=== PATIENT | male | born 1985 | race Caucasian/White ===

== ENCOUNTER 2018-04-04 12:02 | Emergency (ER) | payer MEDICAID ==
[~2018-04-04] VITALS: Ht 175.3 cm; Wt 90.7 kg
[~2018-04-04 12:02] MED LIST: QUET25TA46 PO
[2018-04-04] MEDS ORDERED: ASPirin 81 mg TAB PO ONE (12:45)
[2018-04-04 13:03] LABS: Basophils # (auto) 0 uL; Basophils % (auto) 1.1 % (0.0-2.0); Eosinophils # (auto) 0.1 uL; Eosinophils % (auto) 2.4 % (0.0-7.0); Hematocrit 34.8 % (41.0-53.0); Hemoglobin 11.5 g/dL (13.5-17.5); Lymphocytes # (auto) 0.8 uL; Lymphocytes % (auto) 22.5 % (10.0-50.0); Mean Corpuscular Hemoglobin 29.9 pg (28.0-32.0); Mean Corpuscular Hgb Conc. 33.1 g/dL (32.0-36.0); Mean Corpuscular Volume 90.4 fL (80.0-100.0); Monocytes # (auto) 0.4 uL; Monocytes % (auto) 9.6 % (0.0-12.0); Neutrophils # (auto) 2.4 uL; Neutrophils % (auto) 64.4 % (37.0-80.0); Nucleated Red Blood Cells % 0.1 %; Platelet Count (auto) 144 10^3/uL (140-450); Red Blood Cells 3.85 10^6/uL (4.5-5.90); Red Cell Distribution Width 18.4 % (11.8-14.3); White Blood Cell 3.8 10^3/uL (4.4-10.8)
[2018-04-04 13:05] VITALS: BP 117/87
[2018-04-04 13:23] LABS: BUN/Creatinine Ratio 12.6; Potassium 4.2 mmol/L (3.5-5.1)
[2018-04-04 13:27] LABS: Albumin 3.6 g/dL (3.4-5.0); Bilirubin, Total 0.2 mg/dL (0.2-1.0); Total Protein 7.3 g/dL (6.4-8.2)
== END 2018-04-04 14:35 | disposition home or self-care (01) ==
LOC: ER 12:02 → EDBD 12:02 → EDUNIT# 12:02 → ER 14:35
DX: R07.89 Other chest pain (principal); J45.909 Unspecified asthma, uncomplicated; I25.10 Atherosclerotic heart disease of native coronary artery without angina pectoris; I10 Essential (primary) hypertension; I25.2 Old myocardial infarction; F17.210 Nicotine dependence, cigarettes, uncomplicated; Z88.5 Allergy status to narcotic agent; Z98.61 Coronary angioplasty status
CPT/HCPCS: 36415; 80053; 84484; 85025; 93005

== ENCOUNTER 2021-04-07 21:59 | Inpatient (IN) | payer MEDICAID ==
[~2021-04-07] VITALS: Ht 175.3 cm; Wt 68.0 kg
[~2021-04-07 21:59] MED LIST changes: +LEVO50TA7 PO; +NITR0.4S29 SL; +QUET1TAB11 PO; -QUET25TA46 PO; +WARF10TA PO
[2021-04-07 23:25] LABS: Basophils # (auto) 0.1 10 ^3/uL (0-0.2); Mean Corpuscular Hemoglobin 29.2 pg (28.0-32.0); White Blood Cell 5.2 10^3/uL (4.4-10.8)
[2021-04-07 23:37] LABS: Eosinophils # (auto) 0.2 10 ^3/uL (0-0.8); Eosinophils % (auto) 4.3 % (0.0-7.0); Hematocrit 31.9 % (41.0-53.0); Hemoglobin 10.6 g/dL (13.5-17.5); Lymphocytes # (auto) 0.9 10 ^3/uL (0.4-5.4); Lymphocytes % (auto) 17.1 % (10.0-50.0); Mean Corpuscular Hgb Conc. 33.2 g/dL (32.0-36.0); Mean Corpuscular Volume 87.8 fL (80.0-100.0); Monocytes # (auto) 0.5 10 ^3/uL (0-1.3); Monocytes % (auto) 9.6 % (0.0-12.0); Neutrophils # (auto) 3.5 10 ^3/uL (1.6-8.6); Red Blood Cells 3.63 10^6/uL (4.5-5.90); Red Cell Distribution Width 16.4 % (11.8-14.3)
[2021-04-07 23:39] LABS: INR 1.28 (0.9-1.15)
[2021-04-07 23:45] LABS: Calcium 8.6 mg/dL (8.5-10.1); Magnesium 1.8 mg/dL (1.6-2.6); Potassium 4.2 mmol/L (3.5-5.1)
[2021-04-07 23:50] LABS: BUN/Creatinine Ratio 18.4; Bilirubin, Total 0.3 mg/dL (0.2-1.0); Total Protein 7.3 g/dL (6.4-8.2)
[2021-04-08] MEDS ORDERED: MORPHINE SULFATE INJECTION 2 MG/ML SYRG IV ONE (01:15)
[2021-04-08] MEDS ORDERED: TEMAZEPAM 15 MG CAP PO PRN (04:45)
[2021-04-08] MEDS ORDERED: MORPHINE SULFATE INJECTION 2 MG/ML SYRG IV PRN (04:45)
[2021-04-08] MEDS ORDERED: NITROGLYCERIN 0.4 MG SL TAB SL PRN (04:45)
[2021-04-08] MEDS ORDERED: ONDANSETRON HCL 4 MG/2 ML VIAL IV PRN (04:45)
[2021-04-08] MEDS ORDERED: ACETAMINOPHEN 325 MG TAB PO PRN (04:45)
[2021-04-08] MEDS ORDERED: LEVOTHYROXINE SODIUM 50 MCG TAB PO SCH (07:00)
[2021-04-08 09:00] VITALS: BP 113/74
[2021-04-08] MEDS ORDERED: ASPirin 81 mg TAB PO SCH (10:00)
[2021-04-08] MEDS ORDERED: WARFARIN SODIUM 10 MG TAB PO ONE (17:00)
[2021-04-08] MEDS ORDERED: ATORVASTATIN 20 MG TAB PO SCH ×2 (22:00)
== END 2021-04-08 14:37 | disposition left against medical advice (07) | DRG 198 ==
LOC: ER 22:04 → TELE 04-08 04:44 → TELE-EAST 04-08 08:24
PROVIDERS: ADMIT Nurse Practitioner; ATTEND Internal Medicine
DX: R07.9 Chest pain, unspecified (principal); I25.110 Atherosclerotic heart disease of native coronary artery with unstable angina pectoris; D68.9 Coagulation defect, unspecified; E11.9 Type 2 diabetes mellitus without complications; I10 Essential (primary) hypertension; F20.9 Schizophrenia, unspecified; F31.9 Bipolar disorder, unspecified; Z20.822 Contact with and (suspected) exposure to COVID-19; Z53.29 Procedure and treatment not carried out because of patient's decision for other reasons; J45.909 Unspecified asthma, uncomplicated; Z80.52 Family history of malignant neoplasm of bladder; Z82.49 Family history of ischemic heart disease and other diseases of the circulatory system; Z83.3 Family history of diabetes mellitus; Z86.73 Personal history of transient ischemic attack (TIA), and cerebral infarction without residual deficits; Z91.14 Patient's other noncompliance with medication regimen; Z95.1 Presence of aortocoronary bypass graft; I25.2 Old myocardial infarction
CPT/HCPCS: 36415; 70450; 71045; 80053; 83036; 83735; 83880; 84443; 84484; 85025; 85610; 87426; 96374; G0378

== ENCOUNTER 2023-03-15 21:48 | Inpatient (IN) | payer MEDICAID ==
[~2023-03-15] VITALS: Ht 177.8 cm; Wt 84.1 kg
[2023-03-15 23:05] VITALS: PULSE 77; RESP 18; O2SAT 97
[2023-03-15 23:55] LABS: Basophils # (auto) 0.1 10 ^3/uL (0-0.2); Basophils % (auto) 0.9 % (0.0-2.0); Eosinophils # (auto) 0.1 10 ^3/uL (0-0.8); Eosinophils % (auto) 1.9 % (0.0-7.0); Hemoglobin 10.7 g/dL (13.5-17.5); Lymphocytes % (auto) 14.2 % (10.0-50.0); Mean Corpuscular Hemoglobin 28.6 pg (28.0-32.0); Mean Corpuscular Hgb Conc. 33.4 g/dL (32.0-36.0); Mean Corpuscular Volume 85.7 fL (80.0-100.0); Monocytes # (auto) 0.7 10 ^3/uL (0-1.3); Neutrophils # (auto) 5.3 10 ^3/uL (1.6-8.6); Red Blood Cells 3.74 10^6/uL (4.5-5.90); Red Cell Distribution Width 18.3 % (11.8-14.3); White Blood Cell 7.2 10^3/uL (4.4-10.8)
[2023-03-16 00:09] LABS: INR 1.26 (0.9-1.15); Partial Thromboplastin Time 25.1 SEC (24.5-34.5)
[2023-03-16 00:14] LABS: Alanine Aminotransferase 43 U/L (7-40); Alkaline Phosphatase 61 U/L (46-116); Anion Gap 7 (5-15); Aspartate Aminotransferase 23 U/L (13-40); BUN/Creatinine Ratio 10.8 (10.0-20.0); Blood Urea Nitrogen 15 mg/dL (9-23); Calcium 9.2 mg/dL (8.7-10.4); Carbon Dioxide 26 mmol/L (20-30); Chloride 103 mmol/L (98-107); Glucose 91 mg/dL (74-106); Magnesium 1.8 mg/dL (1.6-2.6); Sodium 136 mmol/L (136-145)
[2023-03-16 00:15] LABS: Bilirubin, Total 0.5 mg/dL (0.2-1.0); Total Protein 7.7 g/dL (5.7-8.2)
[2023-03-16 00:55] VITALS: PULSE 71; RESP 18; O2SAT 98
[2023-03-16 01:27] VITALS: TEMP 98.8
[2023-03-16] MEDS ORDERED: ENOXAPARIN SOD 80 MG/0.8ML SYRINGE SC ONE (01:30)
[2023-03-16] MEDS ORDERED: ONDANSETRON HCL 4 MG/2 ML VIAL IV ONE (02:15)
[2023-03-16] MEDS ORDERED: MORPHINE SULFATE 4 MG/ML SYR/VIAL IV ONE (02:15)
[2023-03-16] MEDS ORDERED: ONDANSETRON HCL 4 MG/2 ML VIAL IV PRN (05:15)
[2023-03-16] MEDS ORDERED: ACETAMINOPHEN 325 MG TAB PO PRN (05:15)
[2023-03-16] MEDS ORDERED: MORPHINE SULFATE INJ 2 MG/ml SYRG IV PRN (05:15)
[2023-03-16] MEDS ORDERED: NITROGLYCERIN 0.4 MG SL TAB SL PRN (05:15)
[2023-03-16] MEDS ORDERED: LEVOTHYROXINE SODIUM 100 MCG TAB PO SCH (07:00)
[2023-03-16 07:45] VITALS: RESP 18; O2SAT 98
[2023-03-16 08:00] VITALS: BP 110/78; PULSE 78; RESP 12; O2SAT 94
[2023-03-16] MEDS ORDERED: SERTRALINE HCL 50 MG TAB PO SCH (10:00)
[2023-03-16] MEDS ORDERED: CLOPIDOGREL BISULFATE 75 MG TAB PO SCH (10:00)
[2023-03-16] MEDS ORDERED: OLANZapine 5 MG TAB PO SCH (22:00)
[2023-03-16] MEDS ORDERED: ATORVASTATIN 20 MG TAB PO SCH ×2 (22:00)
== END 2023-03-16 09:50 | disposition left against medical advice (07) | DRG 198 ==
LOC: EDBD 21:48 → ER 21:48 → TELE 03-16 05:10
PROVIDERS: ADMIT Nurse Practitioner; ATTEND Family Medicine
DX: I24.9 Acute ischemic heart disease, unspecified (principal); R45.851 Suicidal ideations; E11.22 Type 2 diabetes mellitus with diabetic chronic kidney disease; I13.0 Hypertensive heart and chronic kidney disease with heart failure and stage 1 through stage 4 chronic kidney disease, or unspecified chronic kidney disease; I50.9 Heart failure, unspecified; D64.9 Anemia, unspecified; F06.4 Anxiety disorder due to known physiological condition; F20.9 Schizophrenia, unspecified; F31.9 Bipolar disorder, unspecified; F43.10 Post-traumatic stress disorder, unspecified; F90.9 Attention-deficit hyperactivity disorder, unspecified type; Z53.29 Procedure and treatment not carried out because of patient's decision for other reasons; I25.10 Atherosclerotic heart disease of native coronary artery without angina pectoris; I25.2 Old myocardial infarction; J44.9 Chronic obstructive pulmonary disease, unspecified; N18.9 Chronic kidney disease, unspecified; Z86.73 Personal history of transient ischemic attack (TIA), and cerebral infarction without residual deficits; Z91.51 Personal history of suicidal behavior; Z95.1 Presence of aortocoronary bypass graft
CPT/HCPCS: 36415; 80053; 83735; 83880; 84484; 85025; 85610; 85730; 93005; 96372; 96374; 96375; 99291; G0378; J2405